=== PATIENT | female | born 1985 | race Caucasian/White ===

== ENCOUNTER 2018-06-21 08:02 | Emergency (ER) | payer MEDICAID ==
[~2018-06-21] VITALS: Ht 157.5 cm; Wt 54.0 kg
[2018-06-21] MEDS ORDERED: IBU800 MG PO (08:17)
[2018-06-21] MEDS ORDERED: DONNATAL TABL16.2 MG PO (10:34)
[2018-06-21] MEDS ORDERED: OMEPRAZOLE20 MG PO (10:34)
== END 2018-06-21 10:55 | disposition home or self-care (01) ==
LOC: ED 08:02
DX: K21.9 Gastro-esophageal reflux disease without esophagitis (principal); F17.200 Nicotine dependence, unspecified, uncomplicated; Z88.8 Allergy status to other drugs, medicaments and biological substances
CPT/HCPCS: 71046; 80053; 81001; 83690; 85025; 96374; 99285-25; J1885

== ENCOUNTER 2024-03-21 23:10 | Emergency (ER) | payer OTHER ==
[~2024-03-21] VITALS: Ht 157.5 cm; Wt 63.0 kg
[~2024-03-21 23:10] MED LIST: DONNATAL TABL16.2 MG PO; IBU800 MG PO; OMEPRAZOLE20 MG PO
[2024-03-22 01:00] VITALS: BP 132/86
== END 2024-03-22 01:00 | disposition home or self-care (01) ==
LOC: ED 23:10
DX: S01.81XA Laceration without foreign body of other part of head, initial encounter (principal); W22.8XXA Striking against or struck by other objects, initial encounter; F10.129 Alcohol abuse with intoxication, unspecified; F17.200 Nicotine dependence, unspecified, uncomplicated; Z88.6 Allergy status to analgesic agent
CPT/HCPCS: 12013; 70450; 99283-25

== ENCOUNTER 2024-08-10 00:39 | Emergency (ER) | payer OTHER ==
[~2024-08-10] VITALS: Ht 157.5 cm; Wt 58.0 kg
[2024-08-10] MEDS ORDERED: THIAMINE HCL 200 MG/2 ML VIAL IV ONE (01:00)
[2024-08-10] MEDS ORDERED: LACTATED RINGER'S 1,000 ML IV ONE (01:00)
[2024-08-10 01:43] LABS: BILIRUBIN, URINE NEGATIVE (negative); BLOOD/HGB, URINE NEGATIVE (Negative); KETONE, URINE NEGATIVE (Negative); LEUK ESTERASE, URINE NEGATIVE (negative); NITRITE, URINE NEGATIVE (negative)
[2024-08-10] MEDS ORDERED: LIDOCAINE/RACEPINEP/TETRACAINE 3 ML SYR TOP ONE (01:45)
[2024-08-10 02:10] LABS: AMPHETAMINES, URINE NEGATIVE (NEGATIVE); BARBITURATES, URINE NEGATIVE (NEGATIVE); BENZODIAZEPINE, URINE NEGATIVE (NEGATIVE); BUPRENORPHINE, URINE NEGATIVE (NEGATIVE); CANNABINOID, URINE NEGATIVE (NEGATIVE); COCAINE, URINE NEGATIVE (NEGATIVE); ECSTASY, URINE NEGATIVE (NEGATIVE); FENTANYL, URINE NEGATIVE (NEGATIVE); METHADONE, URINE NEGATIVE (NEGATIVE); OPIATES, URINE NEGATIVE (NEGATIVE); OXYCODONE, URINE NEGATIVE (NEGATIVE); PHENCYCLIDINE, URINE NEGATIVE (NEGATIVE)
[2024-08-10 02:24] VITALS: BP 138/78
== END 2024-08-10 02:26 | disposition other institution, planned readmission (95) ==
LOC: ED 00:39
PROVIDERS: Internal Medicine
DX: S01.112A Laceration without foreign body of left eyelid and periocular area, initial encounter (principal); F17.200 Nicotine dependence, unspecified, uncomplicated; Y04.8XXA Assault by other bodily force, initial encounter; Z88.5 Allergy status to narcotic agent
CPT/HCPCS: 12011; 70450; 70486; 72125; 80053; 80307; 81003; 83735; 84703; 85025; 99284-25; G0480